=== PATIENT | female | born 1945 | race Caucasian/White ===

== ENCOUNTER 2024-02-23 11:55 | Emergency (ER) | payer OTHER, SELFPAY ==
[2024-02-23 12:07] VITALS: BP 150/73
--- NOTE | 2024-02-23 13:38 | ED.GENMED ---
History of Present Illness
General
Chief Complaint: Back Pain
Time Seen by Provider: 02/23/24 13:29
History of Present Illness
History of Present Illness:
78-year-old female presents the emergency department for evaluation of nontraumatic low back pain has been gradually worsening for the past 48 hours. Denies any falls. Denies any lower extremity weakness or numbness. She has a history of lumbar
spine fusion many years ago but has not had any problems with the pain on daily basis. Does not take any medications typically for pain and has not taken anything acutely for current symptoms. Denies any loss of bladder or bowel function, no
associated fevers or chills.
Past History
Past History
ED Past Medical History: Other (sciatica)
ED Past Surgical History: None
Review of Systems
Review of Systems
Allergies reviewed?: Yes
All Other Systems: ROS reviewed and negative except as documented in HPI and ROS
Phy Exam
Physical Exam
Physical Exam:
GEN: Well appearing, NAD, WDWN
HEENT: Oral mucosa moist, no scleral icterus
Cardiac: Regular rate
Lung: No respiratory distress, no tachypnea
MSK: No gross deformity or injuries. Pain elicited throughout the lumbar spine range of motion, no midline bony process tenderness. Normal range of motion of bilateral hips and knees with no pain elicited, normal strength of bilateral lower
extremities
Skin: Good color, no pallor or jaundice, no rashes
Neuro: AO x3, moves all extremities freely
Psych: Calm, cooperative
Course
Orders/Labs/Results
Orders:
Orders
02/23/24 14:01
Acetaminophen [Tylenol] 650 mg PO NOW STA
Ketorolac [Toradol] 30 mg IM NOW STA
Lidocaine [Lidocaine 4% Patch] 1 patch TOPICAL NOW STA
Apply Lidocaine patch(s) to:: low back
CR Lumbar Spine Comp Min 4 Vw* Urgent
Comment:
Reason For Exam: non traumatic pain, prior fusion
Vital Signs
Initial and Last Documented VS:
Initial Vital Signs
Temp Pulse Resp BP Pulse Ox
98.9 F 82 20 150/73 94
02/23/24 12:07 02/23/24 12:07 02/23/24 12:07 02/23/24 12:07 02/23/24 12:07
Last Documented Vital Signs
Temp Pulse Resp BP Pulse Ox
98.9 F 67 18 159/89 98
02/23/24 12:07 02/23/24 15:33 02/23/24 15:33 02/23/24 15:33 02/23/24 15:33
MDM/Problems Addressed
MDM/Problems Addressed:
Patient has no red flag symptoms warranting advanced imaging, no lower extremity radiculopathy or urinary incontinence. Her pain improved with measures in the emergency department. X-rays were obtained to evaluate for surgical hardware which shows
no evidence of migration or disruption. Recommend outpatient pain and spine follow-up
*Critical Care Note
Total Time (30-74mins, 75-104mins- exclusive of procedures): Not Applicable
ED Attending Note
-
Portions of this chart may have been created with voice recognition software.� Occasional wrong word or��sound alike� substitutions may have occurred due to the inherent limitations of voice recognition software.
Discharge Plan
Departure
Patient Disposition: Home (Routine Discharge)
Date of Disposition: 02/23/24
Time of Disposition: 15:02
Patient with high blood pressure during this ER visit?: No
Discharge Problem:
Low back pain
Instructions: Low Back Pain (DC)
Prescriptions:
New
diclofenac sodium 75 mg tablet,delayed release (DR/EC)
75 mg PO BID Qty: 20 0RF
tramadol 50 mg tablet
25 - 50 mg PO BID PRN (Reason: Pain) Qty: 10 0RF
No Action
atorvastatin 40 MG tablet
40 mg PO QPM
atenolol 25 MG tablet
25 mg PO DAILY
spironolactone 25 MG tablet
25 mg PO DAILY
calcium citrate-vitamin D3 250 mg-5 mcg (200 unit) Tablet
1 tab PO DAILY Qty: 0
cholecalciferol (vitamin D3) [Vitamin D3] 2,000 UNIT capsule
2,000 unit PO DAILY
hydrocodone-acetaminophen [[place]] 1 EACH tablet
1 ea PO Q6HPRN PRN (Reason: pain) Qty: 40 0RF
Rx Instructions:
Take 1 tablet four times a day, every 6 hours for pain
No Hx of filling this med per PDMP 08/23/22
lorazepam 1 MG tablet
1 mg PO TIDPRN PRN (Reason: pain/spasms) Qty: 40 0RF
Rx Instructions:
No hx of filling this med per PDMP 08/23/22
sennosides [senna] 8.6 MG tablet
8.6 mg PO HS
acetaminophen-codeine 1 TABLET tablet
1 tab PO Q6HPRN PRN (Reason: PAIN)
aspirin 81 MG tablet,delayed release (DR/EC)
81 mg PO DAILY
pantoprazole 20 mg Tablet,Delayed Release (Dr/Ec)
20 mg PO DAILY 30 Days Qty: 30 0RF
amlodipine 2.5 mg Tablet
2.5 mg PO DAILY 30 Days Qty: 30 0RF
losartan 25 mg Tablet
25 mg PO DAILY 30 Days Qty: 30 0RF
Referrals:
Chip Boswell MD [Active] -
Activity Restrictions/Additional Instructions:
Follow up with pain and pharmacovigilance specialist, as well as your primary care physician, if pain persists
Interventions
Interventions:
*Risk Screen - Suicide Last Done: 02/23/24 13:45
*General Assessment Last Done: 02/23/24 13:45
*Neglect/Abuse Screening Last Done: 02/23/24 13:45
*ED COVID-19 Vaccine History Last Done: 02/23/24 13:45
*Nursing Disposition Last Done: 02/23/24 15:46
ED-Musculoskeletal Assessment Last Done: 02/23/24 13:45
Discharge Date and Time
Discharge Date/Time: 02/23/24 15:47
Print Language: MOHAWK
[2024-02-23] MEDS: TORADOL 30 MG IM (14:09)
[2024-02-23] MEDS: LIDOCAINE 4% PATCH 1 PATCH TOPICAL (14:09)
[2024-02-23] MEDS: TYLENOL 650 MG PO (14:09)
[2024-02-23 15:33] VITALS: BP 159/89
== END 2024-02-23 15:47 | disposition home or self-care (01) ==
LOC: EMR 11:55
PROVIDERS: EMERGENCY PHYSICIAN Emergency Medicine; FAMILY PHYSICIAN Internal Medicine
DX: M54.50 Low back pain, unspecified (principal); M54.30 Sciatica, unspecified side; Z79.82 Long term (current) use of aspirin; Z98.1 Arthrodesis status; Z88.1 Allergy status to other antibiotic agents
CPT/HCPCS: 99284; 96372; 72110

== ENCOUNTER 2024-11-28 13:19 | Emergency (ER) | payer OTHER, SELFPAY ==
[2024-11-28 13:25] VITALS: BP 179/79
[2024-11-28 16:00] VITALS: BP 161/79
--- NOTE | 2024-11-28 16:23 | ED.MUSCINJ ---
HPI-Injury
General
Chief Complaint: Extremity Pain (non-traumatic)
Source: patient
Exam Limitations: none
Time Seen by Provider: 11/28/24 14:35
History of Present Illness-Injury
Initial Injury comments:
79-year-old female presents complaining of left leg pain intermittent over the past several days. The pain is made worse with bearing weight and occasionally she gets spasms when resting. No associated back pain no fever. No bowel or bladder
dysfunction. No perianal anesthesia. She is not anticoagulated. No known injury. No other complaints at this time
Past History
Past History
ED Past Medical History: Other (sciatica)
ED Past Surgical History: None
Phy Exam
Physical Exam
Physical Exam:
General: Well-appearing female no acute respiratory distress
Vascular: 2+ DP pulse left foot
Neurologic: Good sensation left leg. Positive straight leg raise to the left lower extremity with hip in flexion in the extended
Musculoskeletal exam: Good range of motion left hip and knee no specific point tenderness.
Skin is warm no rash or lesions
Injury Course
Orders/Labs/Results
Orders:
Orders
11/28/24 14:00
Knee, Left 4 or More Views [CR Knee - Left 4 Or More View*] Urgent
Comment:
Reason For Exam: pain
11/28/24 14:41
CR Hip - LT w/wo Pel 2-3 Vw* Urgent
Comment:
Reason For Exam: pain
Include a pelvis x-ray?: Yes
11/28/24 14:45
Venous Doppler Lwr Ext Left [US Periph Venous LOWER Ext LT] Urgent
Comment:
Reason For Exam: pain
11/28/24 16:20
Prednisone [Deltasone] 40 mg PO NOW STA
MDM/Problems Addressed
Differential Diagnosis Includes:
Left leg pain. Consider radiculopathy versus degenerative joint disease versus DVT
X-rays of the knee and hip were ordered on the left side which were negative for acute finding. Venous ultrasound was negative for DVT. Suspect radiculopathy. Will recommend prednisone taper and family doctor follow-up. Stable for discharge
*Critical Care Note
Total Time (30-74mins, 75-104mins- exclusive of procedures): Not Applicable
ED Attending Note
-
Portions of this chart may have been created with voice recognition software.� Occasional wrong word or��sound alike� substitutions may have occurred due to the inherent limitations of voice recognition software.
Discharge Plan
Departure
Patient Disposition: Home (Routine Discharge)
Date of Disposition: 11/28/24
Time of Disposition: 16:26
Patient with high blood pressure during this ER visit?: No
Discharge Problem:
Acute lumbar radiculopathy
Instructions: Muscle and Bone Pain (DC)
Prescriptions:
New
prednisone 10 mg Tablet
See Rx Instructions .ROUTE .COMPLEX Qty: 30 0RF
Rx Instructions:
Take By Mouth:
40 mg daily x3 days, 30 mg daily x3 days,
20 mg daily x3 days, 10 mg daily x3 days.
No Action
atorvastatin 40 MG tablet
40 mg PO QPM
atenolol 25 MG tablet
25 mg PO DAILY
spironolactone 25 MG tablet
25 mg PO DAILY
calcium citrate-vitamin D3 250 mg-5 mcg (200 unit) Tablet
1 tab PO DAILY Qty: 0
cholecalciferol (vitamin D3) [Vitamin D3] 2,000 UNIT capsule
2,000 unit PO DAILY
hydrocodone-acetaminophen [[place]] 1 EACH tablet
1 ea PO Q6HPRN PRN (Reason: pain) Qty: 40 0RF
Rx Instructions:
Take 1 tablet four times a day, every 6 hours for pain
No Hx of filling this med per PDMP 08/23/22
lorazepam 1 MG tablet
1 mg PO TIDPRN PRN (Reason: pain/spasms) Qty: 40 0RF
Rx Instructions:
No hx of filling this med per PDMP 08/23/22
sennosides [senna] 8.6 MG tablet
8.6 mg PO HS
acetaminophen-codeine 1 TABLET tablet
1 tab PO Q6HPRN PRN (Reason: PAIN)
aspirin 81 MG tablet,delayed release (DR/EC)
81 mg PO DAILY
pantoprazole 20 mg Tablet,Delayed Release (Dr/Ec)
20 mg PO DAILY 30 Days Qty: 30 0RF
amlodipine 2.5 mg Tablet
2.5 mg PO DAILY 30 Days Qty: 30 0RF
losartan 25 mg Tablet
25 mg PO DAILY 30 Days Qty: 30 0RF
diclofenac sodium 75 mg tablet,delayed release (DR/EC)
75 mg PO BID Qty: 20 0RF
tramadol 50 mg tablet
25 - 50 mg PO BID PRN (Reason: Pain) Qty: 10 0RF
Referrals:
Meche Cramer MD [Family Provider] -
Activity Restrictions/Additional Instructions:
Use prednisone as directed. You may consider using Lidoderm patches [id number]. Return here for worsening symptoms otherwise follow-up with your doctor
Interventions
Interventions:
*Risk Screen - Suicide Last Done: 11/28/24 13:26
*General Assessment Last Done: 11/28/24 13:26
*Neglect/Abuse Screening Last Done: 11/28/24 13:26
*ED COVID-19 Vaccine History Last Done: 11/28/24 13:26
ED-Skin Assessment Last Done: 11/28/24 14:01
ED-Peripheral Vascular Assessment Last Done: 11/28/24 14:01
ED-Musculoskeletal Assessment Last Done: 11/28/24 14:01
Discharge Date and Time
Print Language: FRENCH
[2024-11-28] MEDS: DELTASONE 40 MG PO (16:49)
== END 2024-11-28 17:04 | disposition home or self-care (01) ==
LOC: EMR 13:19
PROVIDERS: EMERGENCY PHYSICIAN Student in an Organized Health Care Education/Training Program; FAMILY PHYSICIAN Internal Medicine
DX: M54.16 Radiculopathy, lumbar region (principal)
CPT/HCPCS: 99284; 73502; 73564; 93971

== ENCOUNTER → 2025-06-04 11:45 | Outpatient (REF) | payer OTHER, SELFPAY | LOC: HWRCS 11:45 | PROVIDERS: ATTENDING PHYSICIAN Internal Medicine Cardiovascular Disease; FAMILY PHYSICIAN Internal Medicine | DX: R06.09 Other forms of dyspnea (principal); I42.8 Other cardiomyopathies | CPT/HCPCS: 78452; 93017; A9500; J2785 ==